=== PATIENT | male | born 1965 | race Caucasian/White ===

== ENCOUNTER 2018-05-28 10:23 | Emergency (ER) | payer OTHER ==
[~2018-05-28] VITALS: Ht 172.7 cm; Wt 126.5 kg
[2018-05-28] MEDS ORDERED: MULTTAB4 (10:32)
[2018-05-28] MEDS ORDERED: ASPI1TAB15 (10:32)
[2018-05-28] MEDS ORDERED: LOSA50TA88 (10:32)
[2018-05-28] MEDS ORDERED: JANU50TA25 (10:32)
[2018-05-28] MEDS ORDERED: ATOR1TAB21 (10:32)
[2018-05-28] MEDS ORDERED: JARD1TAB3 (10:32)
--- NOTE | 2018-05-28 11:26 | REP ---
Chest x-ray: Two views. History: Dyspnea and cough . Comparison study: No comparison study . Findings: The lungs are well inflated and free of infiltrate. The pleural angles are sharp. The heart size is normal. Pulmonary vasculature is not increased. No significant bony abnormality is seen. Impression: Negative chest x-ray. Electronically Signed by Steve Rocha MD 05/28/2018 11:17 A
[2018-05-28] MEDS ORDERED: FLON1SPR NARES (11:36)
[2018-05-28] MEDS ORDERED: TESS100C PO (11:36)
[2018-05-28 11:43] VITALS: BP 140/75
== END 2018-05-28 11:48 | disposition home or self-care (01) ==
LOC: M ED 10:23
DX: J40 Bronchitis, not specified as acute or chronic (principal); E11.9 Type 2 diabetes mellitus without complications; E78.5 Hyperlipidemia, unspecified; F17.290 Nicotine dependence, other tobacco product, uncomplicated; Z79.899 Other long term (current) drug therapy

== ENCOUNTER → 2020-09-15 | Outpatient (REF) | payer OTHER ==
[~2020-09-15] MED LIST: ASPI-546; ATOR1TAB21; FLON1SPR NARES; JANU50TA25; JARD1TAB3; LOSA50TA88; MULT1TAB74; TESS100C PO
== END ==
LOC: M LAB REF 17:20
PROVIDERS: ATTEND Internal Medicine Nephrology
DX: E83.42 Hypomagnesemia (principal)

== ENCOUNTER 2020-11-16 09:20 | Day surgery (SDC) | payer OTHER ==
[~2020-11-16] VITALS: Ht 170.2 cm; Wt 123.9 kg
[~2020-11-16 09:20] MED LIST changes: -ASPI-546; +ASPI-546 PO; -ATOR1TAB21; +ATOR1TAB21 PO; -JANU50TA25; +JANU50TA25 PO; -JARD1TAB3; +JARD1TAB3 PO; -LOSA50TA88; +LOSA50TA88 PO; +LOVA1CAP17 PO; -MULT1TAB74; +MULT1TAB74 PO; +NS 1,000 ML IV ONE
[2020-11-16] MEDS ORDERED: propofoL 200 MG/20 ML VIAL As Ordered ONE (10:57)
[2020-11-16] MEDS ORDERED: LIDOCAINE 2% 100MG/5ML SDV (FOR ANES.) As Ordered ONE (11:25)
--- NOTE | 2020-11-16 11:42 | ROOR ---
Patient Name: Emmett Lin Procedure Date: 11/16/2020 11:19 AM Date of : 1965 Age: 55 Room: [facility] Gender: Male Note Status: Finalized Procedure: Total Colonoscopy to Cecum + ileoscopy Indications: Screening for colorectal malignant neoplasm Providers: Dimas Mcarthur MD Referring MD: IVON DEL VALLE MD Requesting Provider: Medicines: Monitored Anesthesia Care Complications: No immediate complications. Procedure: Pre-Anesthesia Assessment: - The heart rate, respiratory rate, oxygen saturations, blood pressure, adequacy of pulmonary ventilation, and response to care were monitored throughout the procedure. The Colonoscope was introduced through the anus and advanced to the terminal ileum, with identification of the appendiceal orifice and IC valve. The colonoscopy was performed without difficulty. The patient tolerated the procedure well. The quality of the bowel preparation was good. Findings: The perianal and digital rectal examinations were normal. Non-bleeding internal hemorrhoids were found during retroflexion. The hemorrhoids were small and Grade I (internal hemorrhoids that do not prolapse). No other significant abnormalities were identified in a careful examination of the remainder of the colon. The terminal ileum appeared normal. The exam was otherwise without abnormality. Impression: - Non-bleeding internal hemorrhoids. - The examined portion of the ileum was normal. - The examination was otherwise normal. - No specimens collected. - The exam was otherwise normal to the cecum. Recommendation: - Patient has a contact number available for emergencies. The signs and symptoms of potential delayed complications were discussed with the patient. Return to normal activities tomorrow. Written discharge instructions were provided to the patient. - High fiber diet. - Discharge patient to home. - Continue present medications. - Repeat colonoscopy in 10 years for screening purposes. - Return to referring physician. - The findings and recommendations were discussed with the patient. Procedure Code(s): --- Professional --- 70314, Colonoscopy, flexible; diagnostic, including collection of specimen(s) by brushing or washing, when performed (separate procedure) Diagnosis Code(s): --- Professional --- Z12.11, Encounter for screening for malignant neoplasm of colon K64.0, First degree hemorrhoids CPT copyright 2019 [employer]. All rights reserved. The codes documented in this report are preliminary and upon medical biller/coder review may be revised to meet current compliance requirements. Dimas Mcarthur MD Dimas Mcarthur MD 11/16/2020 11:42:11 AM Electronically signed by Dimas Mcarthur MD Number of Addenda: 0 Note Initiated On: 11/16/2020 11:19 AM Estimated Blood Loss: Estimated blood loss: none.
[2020-11-16 12:03] VITALS: BP 133/74
== END 2020-11-16 12:07 | disposition home or self-care (01) ==
LOC: M OPP 09:20
PROVIDERS: ATTEND Internal Medicine Gastroenterology
DX: Z12.11 Encounter for screening for malignant neoplasm of colon (principal); K64.0 First degree hemorrhoids; I10 Essential (primary) hypertension; E78.5 Hyperlipidemia, unspecified; E11.9 Type 2 diabetes mellitus without complications; M10.9 Gout, unspecified; K21.9 Gastro-esophageal reflux disease without esophagitis; G47.30 Sleep apnea, unspecified; F17.290 Nicotine dependence, other tobacco product, uncomplicated; Z79.82 Long term (current) use of aspirin; Z79.84 Long term (current) use of oral hypoglycemic drugs; Z79.899 Other long term (current) drug therapy

== ENCOUNTER 2021-03-21 10:48 | Emergency (ER) | payer OTHER ==
[~2021-03-21] VITALS: Ht 175.3 cm; Wt 132.0 kg
[~2021-03-21 10:48] MED LIST changes: +LOSA50TA28 PO; -LOSA50TA88 PO; -NS 1,000 ML IV ONE
[2021-03-21 15:34] VITALS: BP 142/74
== END 2021-03-21 15:35 | disposition home or self-care (01) ==
LOC: M ED 10:48
DX: E11.9 Type 2 diabetes mellitus without complications (principal); I10 Essential (primary) hypertension; E78.5 Hyperlipidemia, unspecified; Z79.82 Long term (current) use of aspirin; Z79.899 Other long term (current) drug therapy; J30.89 Other allergic rhinitis

== ENCOUNTER → 2023-01-03 | Outpatient (CLI) | payer OTHER ==
[~2023-01-03] MED LIST changes: +METF-838; +MULT-90; +OMEP-173; +SEMA0.257; +ZYRTTAB8 PO
== END ==
LOC: M RAD 07:44
PROVIDERS: ATTEND Nurse Practitioner
DX: D69.6 Thrombocytopenia, unspecified (principal); R16.1 Splenomegaly, not elsewhere classified; K80.20 Calculus of gallbladder without cholecystitis without obstruction; N28.1 Cyst of kidney, acquired